=== PATIENT | male | born 2000 | race Caucasian/White ===

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

== ENCOUNTER 2025-06-20 08:35 | Emergency (ER) | payer BC ==
[~2025-06-20] VITALS: Ht 170.2 cm; Wt 54.4 kg
[2025-06-20 08:50] VITALS: BP 119/71
[2025-06-20] MEDS ORDERED: IBUPROFEN 200 MG TABLET ONE (09:20)
[2025-06-20] MEDS ORDERED: ACETAMINOPHEN 500 MG TABLET ONE (09:20)
[2025-06-20] MEDS: IBUPROFEN 200 MG TABLET PO ONE (09:26)
[2025-06-20] MEDS: ACETAMINOPHEN 500 MG TABLET PO ONE (09:26)
[2025-06-20 10:05] VITALS: BP 119/71; TEMP 97.8; O2SAT 98
== END 2025-06-20 10:06 | disposition home or self-care (01) ==
LOC: ER 08:35
DX: S66.811A Strain of other specified muscles, fascia and tendons at wrist and hand level, right hand, initial encounter (principal); V43.62XA Car passenger injured in collision with other type car in traffic accident, initial encounter; Y93.89 Activity, other specified; Y92.89 Other specified places as the place of occurrence of the external cause; Y99.8 Other external cause status
CPT/HCPCS: 73100; A4606; A4663; A9150